=== PATIENT | male | born 1970 | race African-American/Black ===

== ENCOUNTER 2016-12-22 06:51 | Emergency (ER) | payer MEDICAID ==
--- NOTE | 2016-12-22 07:05 | ER Document Report ---
ED General - General Stated Complaint: POSSIBLE OVERDOSE Time Seen by Provider: 12/22/16 06:57 Mode of Arrival: Medic Information source: Patient, Law Enforcement Cannot obtain history due to: Altered mental status Notes: 41-year-old male presents as a suicide attempt. Patient had initially called for difficulty breathing however he has multiple pages of a suicide note written and he states to EMS that he wanted to kill himself. On arrival patient was initially minimally responsive only to painful stimuli but has since become agitated, patient has been satting 100% throughout - HPI Onset: Just prior to arrival Onset/Duration: Sudden Quality of pain: No pain Severity: Severe Pain Level: Denies Associated symptoms: Other Exacerbated by: Denies Relieved by: Denies Similar symptoms previously: No Recently seen / treated by doctor: No - Related Data Allergies/Adverse Reactions: MARIA R Inhibitors Allergy (Verified 12/22/16 08:26) Penicillins Allergy (Verified 12/22/16 08:26) shellfish derived Allergy (Verified 12/22/16 08:26) Home Medications: Current Home Medications Unobtainable [Unobtainable] 12/22/16 [History] Past Medical History - Social History Smoking Status: Never Smoker Cigarette use (# per day): No Chew tobacco use (# tins/day): No Smoking Education Provided: No Family History: Reviewed & Not Pertinent Review of Systems - Review of Systems Notes: REVIEW OF SYSTEMS: CONSTITUTIONAL : Denies fever, chills, or sweats. Denies recent illness. EENT: admits to throat swelling CARDIOVASCULAR: Denies chest pain. Denies palpitations or racing or irregular heart beat. Denies ankle edema. RESPIRATORY: Denies cough, cold, or chest congestion. Denies shortness of breath, difficulty breathing, or wheezing. GASTROINTESTINAL: Denies abdominal pain or distention. Denies nausea, vomiting , or diarrhea. Denies blood in vomitus, stools, or per rectum. Denies black, tarry stools. Denies constipation. GENITOURINARY: Denies difficulty urinating, painful urination, burning, frequency, blood in urine, or discharge. MUSCULOSKELETAL: Denies back or neck pain or stiffness. Denies joint pain or swelling. SKIN: Denies rash, lesions or sores. HEMATOLOGIC : Denies easy bruising or bleeding. LYMPHATIC: Denies swollen, enlarged glands. NEUROLOGICAL: Denies confusion or altered mental status. Denies passing out or loss of consciousness. Denies dizziness or lightheadedness. Denies headache. Denies weakness or paralysis or loss of use of either side. Denies problems with gait or speech. Denies sensory loss, numbness, or tingling. Denies seizures. PSYCHIATRIC: Denies anxiety or stress. Denies depression, suicidal ideation, or homicidal ideation. ALL OTHER SYSTEMS REVIEWED AND NEGATIVE. Dictation was performed using [employer] voice recognition software PHYSICAL EXAMINATION: GENERAL: Well-appearing, well-nourished and in no acute distress. HEAD: Atraumatic, normocephalic. EYES: Pupils equal round and reactive to light, extraocular movements intact, sclera anicteric, conjunctiva are normal. ENT: Nares patent, oropharynx clear without exudates. Moist mucous membranes. NECK: Normal range of motion, supple without lymphadenopathy LUNGS: Breath sounds clear to auscultation bilaterally and equal. No wheezes rales or rhonchi. No stridor is noted patient is breathing 100% HEART: Regular rate and rhythm without murmurs ABDOMEN: Soft, nontender, nondistended abdomen. No guarding, no rebound. No masses appreciated. Musculoskeletal: Normal range of motion, no pitting or edema. No cyanosis. NEUROLOGICAL: Initial GCS was 9, patient did quickly awaken and was very agitated PSYCH: Agitated SKIN: Warm, Dry, normal turgor, no rashes or lesions noted. Physical Exam - Vital signs Vitals: Resp Pulse Ox 20 100 12/22/16 06:52 12/22/16 06:52 Course - Re-evaluation Re-evalutation: 12/22/16 07:03 I evaluated the patient's airway I do not find any difficulty breathing there is no stridor he does not appear to be in any distress, patient does have a 7 page suicide note with multiple pill bottles but unfortunately they were all prescribed many years ago and unknown if he took any. Labwork is pending, Patient was placed in restraints due to his agitation initial concern was to intubate patient for airway protection at this time he is stable 12/22/16 07:42 pt just vomited 6 pills 12/22/16 07:48 Spoke with vignesh bland, they have little concern for the niacin and dicyclamine concern for reglan overdose noted, supportive care at this time, benzo for seizure activity 12/22/16 11:44 Medically patient is stable at this time he will be kept involuntarily for suicide attempt - Vital Signs Vital signs: Temp Pulse Resp BP Pulse Ox 97.7 F 20 153/100 H 99 12/22/16 10:59 12/22/16 07:46 12/22/16 07:46 12/22/16 07:46 - Laboratory Result Diagrams: 12/22/16 07:57 12/22/16 07:57 Laboratory results interpreted by me: 12/22/16 12/22/16 07:57 07:57 WBC 12.8 H RBC 5.83 H Hgb 18.4 H Hct 53.8 H Potassium 3.3 L Carbon Dioxide 20 L Creatinine 1.32 H Est GFR (Non-Af Amer) 59 L Glucose 124 H Total Protein 8.3 H Salicylates < 1.0 L Acetaminophen < 10 L - EKG Interpretation by Me EKG shows normal: Sinus rhythm, [place], Intervals, QRS Complexes Discharge - Discharge Clinical Impression: Suicide attempt Altered mental status Qualifiers: Altered mental status type: stupor Qualified Code(s): R40.1 - Stupor Condition: Stable Disposition: PSYCH HOSP/UNIT Referrals: LOCALMD,NO [Primary Care Provider] - Follow up as needed
[2016-12-22] MEDS ORDERED: ONDANSETRON HCL INJ/PF 4 MG/2 ML SDV IV ONE (07:38)
[2016-12-22] MEDS ORDERED: NORMAL SALINE 1000 ML 1,000 ML IV ONE (07:48)
[2016-12-22 08:06] LABS: ABSOLUTE BASOPHILS # (AUTO) 0.1 10^3/uL (0.0-0.2); ABSOLUTE EOSINOPHILS # (AUTO) 0.1 10^3/uL (0.0-0.6); ABSOLUTE LYMPHOCYTES (AUTO) 4.6 10^3/uL (0.5-4.7); ABSOLUTE MONOCYTES (AUTO) 0.7 10^3/uL (0.1-1.4); ABSOLUTE NEUT (AUTO) 7.3 10^3/uL (1.7-8.2); BASOPHILS % (AUTO) 0.5 % (0-2); EOSINOPHILS % (AUTO) 1.1 % (0-6); HEMATOCRIT 53.8 % (37.9-51.0); HEMOGLOBIN 18.4 g/dL (13.5-17.0); HGB HCT DIFFERENCE 1.4; LYMPHOCYTES % (AUTO) 35.9 % (13-45); MEAN CORPUSCULAR HEMOGLOBIN 31.5 pg (27.0-33.4); MEAN CORPUSCULAR HGB CONC 34.2 g/dL (32.0-36.0); MEAN CORPUSCULAR VOLUME 92 fl (80-97); MONOCYTES % (AUTO) 5.7 % (3-13); RED BLOOD COUNT 5.83 10^6/uL (4.35-5.55); RED CELL DISTRIBUTION WIDTH 13.6 % (11.5-14.0); SEGMENTED NEUTROPHILS % (AUTO) 56.8 % (42-78); WHITE BLOOD COUNT 12.8 10^3/uL (4.0-10.5)
[2016-12-22 08:21] LABS: ALANINE AMINOTRANSFERASE 31 U/L (21-72); ALBUMIN 4.9 g/dL (3.5-5.0); ALCOHOL 24 mg/dL (NONE DETECTED); ALKALINE PHOSPHATASE 68 U/L (38-126); ANION GAP 18 (5-19); ASPARTATE AMINO TRANSFERASE 30 U/L (17-59); BILIRUBIN,DIRECT 0.3 mg/dL (0.0-0.4); BLOOD UREA NITROGEN 10 mg/dL (7-20); CARBON DIOXIDE 20 mmol/L (22-30); CHLORIDE 107 mmol/L (98-107); CREATININE RESULT 1.32 mg/dL (0.52-1.25); GLUCOSE 124 mg/dL (75-110); POTASSIUM 3.3 mmol/L (3.6-5.0); SODIUM 144.6 mmol/L (137-145); TOTAL PROTEIN 8.3 g/dL (6.3-8.2)
[2016-12-22] MEDS: LEVETIRACETAM 500 MG TABLET PO SCH (17:51)
[2016-12-22] MEDS: BUSPIRONE HCL 10 MG TABLET PO SCH (17:51)
[2016-12-22] MEDS ORDERED: CHLORPROMAZINE HCL INJ 25 MG/1 ML AMPULE IV SCH (18:00)
[2016-12-23 01:19] LABS: APPEARANCE,URINE CLEAR; BILIRUBIN,URINE NEGATIVE (NEGATIVE); GLUCOSE, URINE NEGATIVE (NEGATIVE); KETONES,URINE NEGATIVE (NEGATIVE); LEUKOCYTE ESTERASE,URINE NEGATIVE (NEGATIVE); NITRITE,URINE NEGATIVE (NEGATIVE); PROTEIN,URINE NEGATIVE (NEGATIVE); URINE SPECIFIC GRAVITY 1.018
[2016-12-23 01:53] LABS: URINE BARBITURATES SCREEN NEGATIVE; URINE METHADONE SCREEN NEGATIVE; URINE OPIATES LOW NEGATIVE; URINE PHENCYCLIDINE SCREEN NEGATIVE
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
--- NOTE | 2016-12-23 07:31 | EKG REPORT ---
SEVERITY:- ABNORMAL ECG - SINUS RHYTHM LEFT ANTERIOR FASCICULAR BLOCK BORDERLINE R WAVE PROGRESSION, ANTERIOR LEADS : Confirmed by: Brijesh Blanco MD 23-Dec-2016 07:30:10
--- NOTE | 2016-12-23 09:34 | ER Document Report ---
Doctor's Note Notes: 12/23/16 09:33 As the rounding physician for our psychiatric patients, I have reviewed the chart, vitals, lab work. Patient has been examined and noted to be intermittently agitated stating he wants to go home. I am awaiting mental health in [place], however I believe he definitely needs placement but patient states he will become violent.
[2016-12-23] MEDS: BUSPIRONE HCL 10 MG TABLET PO SCH (09:55)
[2016-12-23] MEDS: LEVETIRACETAM 500 MG TABLET PO SCH (09:55)
[2016-12-23] MEDS: CHLORPROMAZINE HCL INJ 25 MG/1 ML AMPULE IM SCH ×2 (12:00→17:57)
[2016-12-24] MEDS: CHLORPROMAZINE HCL INJ 25 MG/1 ML AMPULE IM SCH ×2 (06:00)
[2016-12-24] MEDS ORDERED: CHLORPROMAZINE HCL 10 MG TABLET PO PRN (09:55)
--- NOTE | 2016-12-24 09:56 | ER Document Report ---
Doctor's Note Notes: 12/24/16 09:56 Patient seen and evaluated and assessed this a.m. Asked to change Thorazine to as needed which I have done. Pending arrangement disposition per psychiatric team.
[2016-12-24] MEDS: LEVETIRACETAM 500 MG TABLET PO SCH (10:52)
[2016-12-24] MEDS: BUSPIRONE HCL 10 MG TABLET PO SCH (10:53)
[2016-12-24 12:13] VITALS: BP 126/60
[2016-12-24] MEDS ORDERED: ATORVASTATIN CALCIUM 20 MG TABLET PO SCH ×2 (12:30→22:00)
[2016-12-25] MEDS ORDERED: METOPROLOL TARTRATE 50 MG TABLET PO SCH (10:00)
[2016-12-25] MEDS ORDERED: METFORMIN HCL 500 MG TABLET PO SCH (10:00)
[2016-12-25] MEDS ORDERED: AMLODIPINE BESYLATE 10 MG TABLET PO SCH (10:00)
[2016-12-25] MEDS ORDERED: ASPIRIN 81 MG TABLET, CHEWABLE PO SCH (10:00)
== END 2016-12-24 13:35 ==
LOC: ER 06:51 → EDBD 06:51 → ER 12-24 13:35
DX: T45.0X2A Poisoning by antiallergic and antiemetic drugs, intentional self-harm, initial encounter (principal); R40.1 Stupor; F31.9 Bipolar disorder, unspecified
CPT/HCPCS: 93005; 99285; 96372; 96374; 36415; 82962; 80307 ×4; 85025; 80053; 81001; 93010; J3230; J3490 ×6; J2405; J7030

== ENCOUNTER 2017-09-19 09:15 | Inpatient (IN) | payer SELFPAY ==
--- NOTE | 2017-09-19 09:49 | ER Document Report ---
ED General - General Stated Complaint: SUICIDAL IDEATION Time Seen by Provider: 09/19/17 09:37 Mode of Arrival: Medic Information source: Patient, Emergency Med Personnel, [facility] Records Notes: 47-year-old male history of bipolar disorder with previous suicide attempts presents after a suicide attempt. Patient notes he took on known amount of medications. Patient states he took possibly 3300 mg gabapentin, unknown amount of Depakote 500 mg, and another pill that was given to him by a friend. EMS arrived noted the patient had pinpoint pupils and gave him 2 mg Narcan and patient became more alert. A suicide note was noted Patient admits that he no longer wants to live TRAVEL OUTSIDE OF THE [place] IN LAST 30 DAYS: No - HPI Onset: Other - Unclear if he took medications last night or this morning Onset/Duration: Sudden Quality of pain: No pain Severity: Severe Pain Level: Denies Associated symptoms: Other Exacerbated by: Denies Relieved by: Denies Similar symptoms previously: Yes Recently seen / treated by doctor: Yes - Related Data Allergies/Adverse Reactions: MARIA R Inhibitors Allergy (Verified 12/22/16 08:26) Penicillins Allergy (Verified 12/22/16 08:26) shellfish derived Allergy (Verified 12/22/16 08:26) Past Medical History - Social History Smoking Status: Never Smoker Cigarette use (# per day): No Chew tobacco use (# tins/day): No Smoking Education Provided: No Family History: Reviewed & Not Pertinent Review of Systems - Review of Systems Notes: REVIEW OF SYSTEMS: CONSTITUTIONAL : Denies fever, chills, or sweats. Denies recent illness. EENT: Admits to blurry vision CARDIOVASCULAR: Denies chest pain. Denies palpitations or racing or irregular heart beat. Denies ankle edema. RESPIRATORY: Denies cough, cold, or chest congestion. Denies shortness of breath, difficulty breathing, or wheezing. GASTROINTESTINAL: Denies abdominal pain or distention. Denies nausea, vomiting , or diarrhea. Denies blood in vomitus, stools, or per rectum. Denies black, tarry stools. Denies constipation. GENITOURINARY: Denies difficulty urinating, painful urination, burning, frequency, blood in urine, or discharge. FEMALE GENITOURINARY: Denies vaginal bleeding, heavy or abnormal periods, irregular periods. Denies vaginal discharge or odor. MUSCULOSKELETAL: Denies back or neck pain or stiffness. Denies joint pain or swelling. SKIN: Denies rash, lesions or sores. HEMATOLOGIC : Denies easy bruising or bleeding. LYMPHATIC: Denies swollen, enlarged glands. NEUROLOGICAL: Denies confusion or altered mental status. Denies passing out or loss of consciousness. Denies dizziness or lightheadedness. Denies headache. Denies weakness or paralysis or loss of use of either side. Denies problems with gait or speech. Denies sensory loss, numbness, or tingling. Denies seizures. PSYCHIATRIC: Admits to suicidal ideation ALL OTHER SYSTEMS REVIEWED AND NEGATIVE. PHYSICAL EXAMINATION: GENERAL: Well-appearing, well-nourished and in no acute distress. HEAD: Atraumatic, normocephalic. EYES: Pupils equal round and reactive to light, extraocular movements intact, conjunctiva are normal. ENT: Nares patent, oropharynx clear without exudates. Moist mucous membranes. NECK: Normal range of motion, supple without lymphadenopathy LUNGS: Breath sounds clear to auscultation bilaterally and equal. No wheezes rales or rhonchi. HEART: Regular rate and rhythm without murmurs ABDOMEN: Soft, nontender, nondistended abdomen. No guarding, no rebound. No masses appreciated. Female : deferred Musculoskeletal: Normal range of motion, no pitting or edema. No cyanosis. NEUROLOGICAL: Cranial nerves grossly intact. Normal speech, normal gait. Normal sensory, motor exams PSYCH: Tearful depressed SKIN: Warm, Dry, normal turgor, no rashes or lesions noted. Dictation was performed using [employer] voice recognition software Physical Exam - Vital signs Vitals: Resp BP Pulse Ox 19 125/82 92 09/19/17 09:28 09/19/17 09:28 09/19/17 09:28 Course - Re-evaluation Re-evalutation: 09/19/17 09:47 Poison control called , notified of overdose of gabapentin and depakote 09/19/17 09:52 They suggest continous cardiac monitoring, serial ekg and depakote levels q3 hours if pateint becomes altered to get ammonia levels. treat seizures with benzos 09/19/17 09:54 - Vital Signs Vital signs: Temp Pulse Resp BP Pulse Ox 21 H 125/82 95 09/19/17 09:29 09/19/17 09:28 09/19/17 10:00 - Laboratory Result Diagrams: 09/19/17 09:50 09/19/17 09:50 Laboratory results interpreted by me: 09/19/17 09/19/17 09:50 09:50 WBC 13.3 H RDW 14.3 H Absolute Lymphocytes 5.9 H Sodium 145.2 H Salicylates < 1.0 L Acetaminophen < 10 L Discharge - Discharge Clinical Impression: Suicide attempt Condition: Fair Disposition: ADMITTED INPATIENT Admitting Provider: Hospitalist Unit Admitted: IMCU
--- NOTE | 2017-09-19 09:57 | EKG REPORT ---
SEVERITY:- OTHERWISE NORMAL ECG - SINUS RHYTHM S1,S2,S3 PATTERN : Confirmed by: Merritt Tsai 19-Sep-2017 09:57:09
[2017-09-19 10:09] LABS: ABSOLUTE BASOPHILS # (AUTO) 0.1 10^3/uL (0.0-0.2); ABSOLUTE EOSINOPHILS # (AUTO) 0.4 10^3/uL (0.0-0.6); ABSOLUTE LYMPHOCYTES (AUTO) 5.9 10^3/uL (0.5-4.7); ABSOLUTE MONOCYTES (AUTO) 0.8 10^3/uL (0.1-1.4); BASOPHILS % (AUTO) 1.1 % (0-2); EOSINOPHILS % (AUTO) 2.8 % (0-6); HEMATOCRIT 44.6 % (37.9-51.0); LYMPHOCYTES % (AUTO) 44.3 % (13-45); MEAN CORPUSCULAR HEMOGLOBIN 30.1 pg (27.0-33.4); MEAN CORPUSCULAR HGB CONC 33.6 g/dL (32.0-36.0); MEAN CORPUSCULAR VOLUME 90 fl (80-97); MONOCYTES % (AUTO) 6.3 % (3-13); PLATELET COUNT 379 10^3/uL (150-450); RED BLOOD COUNT 4.98 10^6/uL (4.35-5.55); RED CELL DISTRIBUTION WIDTH 14.3 % (11.5-14.0); SEGMENTED NEUTROPHILS % (AUTO) 45.5 % (42-78); TOTAL CELLS COUNTED % (AUTO) 100 %; WHITE BLOOD COUNT 13.3 10^3/uL (4.0-10.5)
[2017-09-19 10:33] LABS: ALANINE AMINOTRANSFERASE 27 U/L (21-72); ALBUMIN 4.6 g/dL (3.5-5.0); ALKALINE PHOSPHATASE 59 U/L (38-126); ANION GAP 11 (5-19); ASPARTATE AMINO TRANSFERASE 29 U/L (17-59); BILIRUBIN,DIRECT 0.3 mg/dL (0.0-0.4); BILIRUBIN,TOTAL 0.7 mg/dL (0.2-1.3); BLOOD UREA NITROGEN 9 mg/dL (7-20); CALCIUM 10.1 mg/dL (8.4-10.2); CARBON DIOXIDE 27 mmol/L (22-30); CHLORIDE 107 mmol/L (98-107); GLUCOSE 105 mg/dL (75-110); POTASSIUM 4.5 mmol/L (3.6-5.0); SODIUM 145.2 mmol/L (137-145); TOTAL PROTEIN 7.5 g/dL (6.3-8.2)
[2017-09-19 10:39] LABS: ACETAMINOPHEN < 10 ug/mL (10-30); ALCOHOL < 10 mg/dL (NONE DETECTED); SALICYLATE < 1.0 mg/dL (2.0-20.0)
[2017-09-19] MEDS ORDERED: NORMAL SALINE 1000 ML 1,000 ML IV ONE (11:12)
[2017-09-19] MEDS ORDERED: INSULIN LISPRO 100 UNIT/ML 3 ML VIAL SUBCUT PRN (12:04)
[2017-09-19] MEDS ORDERED: GLUCAGON,HUMAN RECOMB 1 MG INJ IM PRN (12:04)
[2017-09-19] MEDS ORDERED: DEXTROSE 40% GEL 15 GM TUBE PO PRN ×2 (12:04)
[2017-09-19] MEDS ORDERED: DEXTROSE 50%-WATER 25 GM/50 ML DISP.SYRIN IV PRN ×2 (12:04)
[2017-09-19 12:28] LABS: APPEARANCE,URINE CLEAR; BILIRUBIN,URINE NEGATIVE (NEGATIVE); COLOR,URINE YELLOW; GLUCOSE, URINE NEGATIVE (NEGATIVE); KETONES,URINE TRACE mg/dL (NEGATIVE); LEUKOCYTE ESTERASE,URINE NEGATIVE (NEGATIVE); NITRITE,URINE NEGATIVE (NEGATIVE); PROTEIN,URINE NEGATIVE (NEGATIVE); URINE SPECIFIC GRAVITY 1.013; UROBILINOGEN,URINE NEGATIVE mg/dL (<2.0)
--- NOTE | 2017-09-19 12:59 | PSYCHOLOGICAL NOTE ---
Psych Note - Psych Note Psych Note: Reason for consult: intentional overdose Clinician notes patient has additional chart [id number] 47-year-old male history of bipolar disorder with previous suicide attempts presents after a suicide attempt. Patient notes he took an unknown amount of medications. EMS arrived noted the patient had pinpoint pupils and gave him 2 mg Narcan and patient became more alert. A suicide note was noted Patient disclosed that he "took a lot of pills." He is unable to disclose how many or what he took stating that they were his "cold pills." He reports that he is tired of "this shit... I am miserable... I love my mom that I am miserable... I do not want to live like this." Patient reports that he was taking some medication however his insurance lapsed and was unable to continue taking that medication. He is unable to identify what his new medications are. Patient is semi-alert and orientated to person, place, time and circumstance. Mood is dysphoric with flat affect. Patient presents after intentional overdose of multiple medications. Patient discloses he does not want to continue living that he is "miserable." Delusions are absent and behaviors congruent with intact reality based presentation i.e. organized and linear thought processes. Cognitive functioning is currently impaired due to his intentional overdose. 296.80 (F31.9) Unspecified Bipolar and Related Disorder per history provided by patient Impression\\plan: Patient is recommended for IVC. Patient demonstrated plan and means and intent that resulted his intentional overdose. Patient's insight and judgment impulse control are poor and he is considered a danger to himself. Dr. Mcdonough was consulted on the care and management of this patient; attending physician is in agreement with recommendations and disposition.
[2017-09-19 13:00] LABS: URINE AMPHETAMINES SCREEN NEGATIVE; URINE BARBITURATES SCREEN NEGATIVE; URINE BENZODIAZEPINES SCREEN NEGATIVE; URINE COCAINE SCREEN UNCONFIRMED POSITIVE; URINE MARIJUANA (THC) SCREEN NEGATIVE; URINE METHADONE SCREEN NEGATIVE; URINE PHENCYCLIDINE SCREEN NEGATIVE
[2017-09-19] MEDS ORDERED: ENOXAPARIN SODIUM INJ 30 MG/0.3 ML DISP.SYRIN SUBCUT ONE (13:00)
[2017-09-19] MEDS ORDERED: LORAZEPAM INJ 2 MG/1 ML VIAL IV PRN (13:03)
--- NOTE | 2017-09-19 19:25 | EKG REPORT ---
SEVERITY:- ABNORMAL ECG - SINUS RHYTHM LEFT ANTERIOR FASCICULAR BLOCK : Confirmed by: Merritt Tsai 19-Sep-2017 19:25:08
--- NOTE | 2017-09-19 21:13 | PDOC H&P ---
History of Present Illness Admission Date/PCP: 09/19/17 11:45 History of Present Illness: ALISON HESS is a 47 year old male who was brought in by EMS following an overdose. The patient ingested up to 30 tablets of 300mg Gabapentin, an unknown number of 500 mg Depakote tablets, and an "unknown tablet" given to him by a friend. The patient states he ingested the pills last night between 2200 and 0200 this morning. The patient also admits to drinking alcohol and using cocaine last night. Of note, the patient was recently hospitalized following a suicide attempt when he tried hanging himself in the back yard. The patient states that after his last suicide attempt, his left him and took their daughter with her. The patient and his have been fighting a lot recently and that is what drove him to attempt suicide. PMH includes Bipolar Disorder, depression, DM, HTN, HLD, CABG x 1, and illicit drug use (cocaine and marijuana) Poison Control was notified by the ED MD, they recommend telemetry monitoring x 24hrs and q6h EKG. The patient presented in NSR, no evidence of acute ischemia or infarction. Vital signs were relatively normal BP125/82 P85 RR20 T98.2 [id number]% on RA. His depakote level was 91, ETOH < 10, all other labs benign. Poison Control also recommends checking depakote levels q3h until the levels peak and checking ammonia level if the patient becomes confused. Upon assessment , the patient is asleep but arousable. He is oriented to self and place only. When asked if he understood his situation, he states he is in the ED for his lower back pain. The patient acknowledges his suicide attempt, but does not think that is the reason why he is in the hospital. In addition to his suicidal ideation, the patient also complains of new blurry vision in his R eye, and chronic lower back pain. IVC paperwork has been served by the [facility]'s Dept. Plan to admit to hospitalist service for medical management following drug overdose. Past Medical History Cardiac Medical History: Reports: Hypertension Endocrine Medical History: Reports: Diabetes Mellitus Type 2 Psychiatric Medical History: Reports: Bipolar Disorder Past Surgical History Past Surgical History: Reports: Coronary Artery Bypass Graft Social History Information Source: Patient Lives with: Parents Smoking Status: Current Every Day Smoker Cigarettes Packs Per Day: 0.5 Number of Years Smokin Frequency of Alcohol Use: Social Hx Recreational Drug Use: Yes Drugs: Cocaine, Marijuana Hx Prescription Drug Abuse: No - Advance Directive Resuscitation Status: Full Code Family History Family History: Reviewed & Not Pertinent Parental Family History Reviewed: Yes Children Family History Reviewed: Yes Sibling(s) Family History Reviewed.: Yes Medication/Allergy Home Medications: Aspirin [Aspirin 81 mg Chewable Tablet] 81 mg PO DAILY 12/24/16 Allergies/Adverse Reactions: MARIA R Inhibitors Allergy (Verified 12/22/16 08:26) Penicillins Allergy (Verified 12/22/16 08:26) shellfish derived Allergy (Verified 12/22/16 08:26) Review of Systems All systems: reviewed and no additional remarkable complaints except as stated Psychiatric: PRESENT: depression, hallucinations, suicidal ideation Physical Exam Vital Signs: Temp Pulse Resp BP Pulse Ox 98.1 F 62 16 146/96 H 100 09/19/17 13:46 09/19/17 14:00 09/19/17 13:46 09/19/17 13:46 09/19/17 13:46 Intake & Output 09/18/17 09/19/17 09/20/17 06:59 06:59 06:59 Intake Total 10 Balance 10 Weight 117.1 kg General appearance: PRESENT: no acute distress, well-developed, well-nourished Head exam: PRESENT: atraumatic, normocephalic Eye exam: PRESENT: conjunctiva pink, EOMI, PERRLA. ABSENT: scleral icterus Ear exam: PRESENT: normal external ear exam Mouth exam: PRESENT: moist, tongue midline Neck exam: ABSENT: carotid bruit, JVD, lymphadenopathy, thyromegaly Respiratory exam: PRESENT: clear to auscultation rimma. ABSENT: rales, rhonchi, wheezes Cardiovascular exam: PRESENT: RRR. ABSENT: diastolic murmur, rubs, systolic murmur Pulses: PRESENT: normal dorsalis pedis pul Vascular exam: PRESENT: normal capillary refill GI/Abdominal exam: PRESENT: normal bowel sounds, soft. ABSENT: distended, guarding, mass, organolmegaly, rebound, tenderness Rectal exam: PRESENT: deferred Extremities exam: PRESENT: full ROM. ABSENT: calf tenderness, clubbing, pedal edema Neurological exam: PRESENT: alert, awake, oriented to person, oriented to place , oriented to time, CN II-XII grossly intact. ABSENT: oriented to situation, motor sensory deficit Psychiatric exam: PRESENT: suicidal ideation. ABSENT: homicidal ideation Skin exam: PRESENT: dry, intact, warm. ABSENT: cyanosis, rash Results Laboratory Results: 09/19/17 12:14 Urine Color YELLOW Urine Appearance CLEAR Urine pH 6.0 Ur Specific [place] 1.013 Urine Protein NEGATIVE Urine Glucose (UA) NEGATIVE Urine Ketones TRACE H Urine Blood NEGATIVE Urine Nitrite NEGATIVE Ur Leukocyte Esterase NEGATIVE Urine WBC (Auto) 0 Urine RBC (Auto) 0 Status: Imported from PACS Assessment & Plan - Diagnosis (1) Suicide attempt Is this a current diagnosis for this admission?: Yes Plan: Patient admits to ingesting gabapentin, depakote, and an "unknown pill" in an attempt to take his life. Suicide note found at scene by EMS. Patient admits to intermittent compliance with psych medications over the last 8 months. Admits to marijuana and cocaine use, as well as infrequent ETOH use. Poison Control notified, they recommend q3hr Depakote levels monitoring for peak and q6h EKG to monitor for QT prolongation and QRS widening. Check ammonia levels if patient becomes acutely confused. Admit to IM 1:1 sitter for safety. Suicide precautions. PSYCH consulted, appreciate their recommendations All home psych medications are on hold at this time PRN IV ativan for agitation (2) HTN (hypertension) Qualifiers: Hypertension type: essential hypertension Qualified Code(s): I10 - Essential (primary) hypertension Is this a current diagnosis for this admission?: Yes Plan: The patient endorses a history of HTN, admits he is non-compliant with medications Home dose metoprolol is currently on HOLD in light of recent overdose. (3) Bipolar 1 disorder, depressed Is this a current diagnosis for this admission?: Yes Plan: Patient states he was diagnosed with Bipolar Disorder "years ago." Endorses visual hallucinations - states he "sees shadows running" Endorses auditory hallucinations - states he hears voices telling him "bad things about himself, and they tell" him to harm himself Patient admits that he has not been compliant with his psych medications for approximately 8 months PSYCH consulted, appreciate their recommendations (4) Diabetes Qualifiers: Diabetes mellitus type: type 2 Diabetes mellitus [employer] insulin use: unspecified [employer] insulin use status Diabetes mellitus complication status : without complication Qualified Code(s): E11.9 - Type 2 diabetes mellitus without complications Is this a current diagnosis for this admission?: Yes Plan: Patient endorses history of DM but states he is non-compliant with treatment Check HgbA1c in AM ACHS accu-cheks with humalog sliding scale insulin - Time Time Spent: 30 to 50 Minutes Critical Time spent with patient: 15-24 minutes Medications reviewed and adjusted accordingly: Yes - Inpatient Certification Based on my medical assessment, after consideration of the patient's comorbidities, presenting symptoms, or acuity I expect that the services needed warrant INPATIENT care.: Yes I certify that my determination is in accordance with my understanding of Medicare's requirements for reasonable and necessary INPATIENT services [42 CFR 412.3e].: Yes Medical Necessity: Other - Involuntarily Committed for suicide attempt - Plan Summary Plan Summary: IVC admission. Monitor for 24hrs - serial EKGs and Depakote levels
[2017-09-20 05:25] LABS: HEMATOCRIT 45.4 % (37.9-51.0); HEMOGLOBIN 15.2 g/dL (13.5-17.0); MEAN CORPUSCULAR HEMOGLOBIN 30.2 pg (27.0-33.4); MEAN CORPUSCULAR HGB CONC 33.6 g/dL (32.0-36.0); MEAN CORPUSCULAR VOLUME 90 fl (80-97); PLATELET COUNT 361 10^3/uL (150-450); RED BLOOD COUNT 5.05 10^6/uL (4.35-5.55); WHITE BLOOD COUNT 10.3 10^3/uL (4.0-10.5)
[2017-09-20 05:43] LABS: ABSOLUTE LYMPHOCYTES# (MANUAL) 5.9 10^3/uL (0.5-4.7); ABSOLUTE MONOCYTES # (MANUAL) 0.2 10^3/uL (0.1-1.4); ABSOLUTE NEUTROPHILS# (MANUAL) 3.7 10^3/uL (1.7-8.2); BASOPHILS % (MANUAL) 1 % (0-2); EOSINOPHILS % (MANUAL) 4 % (0-6); LYMPHOCYTES % (MANUAL) 56 % (13-45); MONOCYTES % (MANUAL) 2 % (3-13); SEGMENTED NEUTROPHILS % (MAN) 36 % (42-78); TOTAL CELLS COUNTED 100
[2017-09-20 05:44] LABS: ANISOCYTOSIS SLIGHT; OVALOCYTES SLIGHT; PLATELET COMMENT ADEQUATE; POIKILOCYTOSIS SLIGHT; TARGET CELLS SLIGHT
[2017-09-20 05:52] LABS: ANION GAP 15 (5-19); BLOOD UREA NITROGEN 13 mg/dL (7-20); CALCIUM 9.5 mg/dL (8.4-10.2); CARBON DIOXIDE 25 mmol/L (22-30); CHLORIDE 105 mmol/L (98-107); GLUCOSE 102 mg/dL (75-110); POTASSIUM 4.3 mmol/L (3.6-5.0); SODIUM 144.5 mmol/L (137-145)
[2017-09-20] MEDS ORDERED: HALOPERIDOL LACTATE INJ 5 MG/1 ML VIAL ONE (07:40)
[2017-09-20] MEDS ORDERED: LORAZEPAM INJ 2 MG/1 ML VIAL ONE (07:41)
[2017-09-20] MEDS ORDERED: LORAZEPAM INJ 2 MG/1 ML VIAL IM ONE (08:00)
[2017-09-20] MEDS ORDERED: HALOPERIDOL LACTATE INJ 5 MG/1 ML VIAL IM ONE (08:00)
[2017-09-20 09:35] VITALS: BP 146/96
[2017-09-20] MEDS ORDERED: ENOXAPARIN SODIUM INJ 30 MG/0.3 ML DISP.SYRIN SUBCUT SCH (10:00)
[2017-09-20] MEDS ORDERED: OLANZAPINE 5 MG TABLET PO SCH (10:00)
[2017-09-20] MEDS ORDERED: METOPROLOL TARTRATE 50 MG TABLET PO SCH (10:00)
[2017-09-20] MEDS ORDERED: ASPIRIN 81 MG TABLET, ENT COATED PO SCH (10:00)
[2017-09-20] MEDS ORDERED: AMLODIPINE BESYLATE 10 MG TABLET PO SCH (10:00)
[2017-09-20] MEDS ORDERED: BENZTROPINE MESYLATE 1 MG TABLET PO SCH (22:00)
[2017-09-21] MEDS ORDERED: DIVALPROEX SODIUM 500 MG TAB.SR.24H PO SCH (11:00)
--- NOTE | 2017-09-24 14:18 | PDOC DISCHARGE SUMMARY ---
General - Admit/Disc Date/PCP Admission Date/Primary Care Provider: 09/19/17 11:45 Discharge Date: 09/20/17 - Discharge Diagnosis (1) Suicide attempt Is this a current diagnosis for this admission?: Yes (2) HTN (hypertension) Is this a current diagnosis for this admission?: Yes (3) Bipolar 1 disorder, depressed Is this a current diagnosis for this admission?: Yes (4) Diabetes Is this a current diagnosis for this admission?: Yes - Additional Information Resuscitation Status: Full Code Discharge Diet: As Tolerated Discharge Activity: Activity As Tolerated Prescriptions: Amlodipine Besylate [Norvasc 10 mg Tablet] 10 mg PO DAILY #7 tablet Benztropine Mesylate [Cogentin 1 mg Tablet] 1 mg PO QHS #7 tablet Divalproex Sodium [Depakote ER 500 mg Tab.sr] 500 mg PO BID #14 tab.sr.24h Metoprolol Tartrate [Lopressor 50 mg Tablet] 50 mg PO DAILY #7 tablet Olanzapine [Zyprexa 5 mg Tablet] 5 mg PO Q12 #14 tablet Home Medications: Aspirin [Aspirin 81 mg Chewable Tablet] 81 mg PO DAILY 12/24/16 Amlodipine Besylate [Norvasc 10 mg Tablet] 10 mg PO DAILY #7 tablet 09/20/17 Benztropine Mesylate [Cogentin 1 mg Tablet] 1 mg PO QHS #7 tablet 09/20/17 Divalproex Sodium [Depakote ER 500 mg Tab.sr] 500 mg PO BID #14 tab.sr.24h 09/20 Metoprolol Tartrate [Lopressor 50 mg Tablet] 50 mg PO DAILY #7 tablet 09/20/17 Olanzapine [Zyprexa 5 mg Tablet] 5 mg PO Q12 #14 tablet 09/20/17 History of Present Illness History of Present Illness: ALISON HESS is a 47 year old male who was brought in by EMS following an overdose. The patient ingested up to 30 tablets of 300mg Gabapentin, an unknown number of 500 mg Depakote tablets, and an "unknown tablet" given to him by a friend. The patient states he ingested the pills last night between 2200 and 0200 this morning. The patient also admits to drinking alcohol and using cocaine last night. Of note, the patient was recently hospitalized following a suicide attempt when he tried hanging himself in the back yard. The patient states that after his last suicide attempt, his left him and took their daughter with her. The patient and his have been fighting a lot recently and that is what drove him to attempt suicide. PMH includes Bipolar Disorder, depression, DM, HTN, HLD, CABG x 1, and illicit drug use (cocaine and marijuana) Poison Control was notified by the ED MD, they recommend telemetry monitoring x 24hrs and q6h EKG. The patient presented in NSR, no evidence of acute ischemia or infarction. Vital signs were relatively normal BP125/82 P85 RR20 T98.2 [id number]% on RA. His depakote level was 91, ETOH < 10, all other labs benign. Poison Control also recommends checking depakote levels q3h until the levels peak and checking ammonia level if the patient becomes confused. Upon assessment , the patient is asleep but arousable. He is oriented to self and place only. When asked if he understood his situation, he states he is in the ED for his lower back pain. The patient acknowledges his suicide attempt, but does not think that is the reason why he is in the hospital. In addition to his suicidal ideation, the patient also complains of new blurry vision in his R eye, and chronic lower back pain. IVC paperwork has been served by the [facility]'s Dept. Plan to admit to hospitalist service for medical management following drug overdose. Hospital Course Hospital Course: ALISON HESS is a 47 year old male who presented to the Emergency Department for a depakote and gabapentin overdose. Valproic Acid levels peaked at 1900 the night of his admission, his level was 101, overnight it decreased to 59.9. Telemetry strip reading shows NSR, no widening of the QRS or prolongation of the QT interval. Nursing staff called the author 0730 the next morning because he was threatening physical violence to staff members. [place] [employer] was called and able to negotiate with the patient. The patient was awake, alert and oriented, able to stand up OOB without difficulty. Joan from poison control was called, she stated that the patient was considered medically cleared from their perspective, the author agrees. PSYCH was notified that the patient is medically cleared, while waiting to hear back about the the plan, the patient was transferred to the ICU. While in ICU the patient met with a PSYCH water team leader. Following their meeting, the PSYCH water team leader stated that she did not believe that the patient had the ability to carry out a lethal suicide. All of his previous attempts were done in a way where he knew someone would find him. While in the ICU, patient repeatedly stated that he did not and that he was only frustrated with the arguments he continued to have with his ex- regarding their daughter. The PSYCH water team leader stated that she felt the patient was safe to go home with instructions to call the mobile crisis unit as soon as he gets to his house. Psych believes that what this patient needs is therapy, and adding medications to his regimen would not benefit him. In addition to the mobile crisis team, the patient was given instructions on following up with the integrated family services team, this being a group of therapists and medical personnel who can coordinate mental health care and help to manage his medications. Prior to discharge from the hospital, the patient denied suicidal and homicidal ideation. He was given prescriptions for his home medications (only 1 one weeks worth) and discharged home in the care of his family friend and accompanied by his elderly mother. On the day of discharge, he was 36hrs+ post ingestion. Physical Exam Vital Signs: Temp Pulse Resp BP Pulse Ox 98.7 F 87 16 146/96 H 98 09/20/17 09:32 09/20/17 09:32 09/20/17 09:32 09/20/17 09:32 09/20/17 09:32 Results Laboratory Results: 09/20/17 04:23 09/20/17 04:23 Status: Imported from [facility] Qualifiers - * PATIENT BEING DISCHARGED WITH ANY OF THE FOLLOWING DIAGNOSIS: No Plan Discharge Plan: discharge home in the care of his neighbor. Patient was given specific instructions to call the crisis mobile hotline when he gets home Time Spent: Less than 30 Minutes
== END 2017-09-20 11:05 | disposition home or self-care (01) | DRG 918 ==
LOC: ER 09:15 → EH 11:45 → 3W 13:38 → ICU 09-20 08:08
PROVIDERS: ADMIT Internal Medicine; ATTEND Internal Medicine
DX: T42.6X2A Poisoning by other antiepileptic and sedative-hypnotic drugs, intentional self-harm, initial encounter (principal); Y92.009 Unspecified place in unspecified non-institutional (private) residence as the place of occurrence of the external cause; T50.902A Poisoning by unspecified drugs, medicaments and biological substances, intentional self-harm, initial encounter; G89.29 Other chronic pain; E11.9 Type 2 diabetes mellitus without complications; I10 Essential (primary) hypertension; F31.9 Bipolar disorder, unspecified; F14.90 Cocaine use, unspecified, uncomplicated; F12.90 Cannabis use, unspecified, uncomplicated; Z63.0 Problems in relationship with spouse or partner; Z91.5 Personal history of self-harm; M54.5 Low back pain; F17.210 Nicotine dependence, cigarettes, uncomplicated; Z88.0 Allergy status to penicillin; Z88.2 Allergy status to sulfonamides; Z88.8 Allergy status to other drugs, medicaments and biological substances; Z79.82 Long term (current) use of aspirin; Z91.19 Patient's noncompliance with other medical treatment and regimen; Z95.1 Presence of aortocoronary bypass graft
CPT/HCPCS: 36415; 80048; 80053; 80164; 80307; 81001; 82140; 82962; 83036; 83735; 84100; 84443; 85025; 93005; 93010; 99285; J1650; J7030

== ENCOUNTER 2018-10-14 07:10 | Emergency (ER) | payer SELFPAY ==
--- NOTE | 2018-10-14 07:32 | ER Document Report ---
ED Psych Disorder / Suicide <SHANAE MALHOTRA - Last Filed: 10/14/18 10:27> - General TRAVEL OUTSIDE OF THE [place] IN LAST 30 DAYS: No - HPI Patient complains to provider of: Overdose, Suicidal ideation, Suicidal plan, Suicidal attempt, Self injury Onset was: Gradual Severity: Moderate Pain Level: 1 - Out headache Suicide Risk Factors: Chronic illness, Depressed, Substance abuse <ALISON LUGO - Last Filed: 10/14/18 10:40> - General Chief Complaint: Suicidal Ideation Stated Complaint: PSYCH EVAL Time Seen by Provider: 10/14/18 07:32 Primary Care Provider: [facility] [Outside] - Follow up as needed [facility] [Outside] - Follow up as needed Notes: 48-year-old -[place] male to the emergency department chief complaint is bipolar, depression, suicidal ideation, substance abuse. Patient states that he has been on medications in the past but cannot remember which ones. Has not been taking any medications for 2 years. States that he is currently on parole. Apparently lost his ankle bracelet last night and did a lot of drugs in an attempt to "kill himself". States that he cannot deal with all of the stress and is requesting help at this time. He has had thoughts of wanting to hang himself. Patient states that he is hearing voices telling him to kill himself. (ALISON LUGO) - Related Data Allergies/Adverse Reactions: Shellfish * [Shellfish] Allergy (Severe, Verified 02/24/18 13:10) MARIA R Inhibitors Allergy (Verified 12/22/16 08:26) iodine [Iodine] Allergy (Verified 02/24/18 13:10) Penicillins Allergy (Verified 12/22/16 08:26) shellfish derived Allergy (Verified 12/22/16 08:26) Past Medical History - General Information source: Patient - Social History Smoking Status: Smoker,Current Status Unk Frequency of alcohol use: None Drug Abuse: Other - Admits to illegal substances Lives with: Spouse/Significant other Family History: CAD, Hypertension, Reviewed & Not Pertinent - Past Medical History Cardiac Medical History: Reports: Hx Coronary Artery Disease, Hx Hypercholesterolemia, Hx Hypertension Denies: Hx Atrial Fibrillation, Hx Congestive Heart Failure, Hx Heart Attack, Hx Peripheral Vascular Disease, Hx Pulmonary Embolism, Hx Heart Murmur Pulmonary Medical History: Reports: Hx Asthma, Hx Pneumonia - 2008 after CABG Denies: Hx Bronchitis, Hx COPD, Hx Respiratory Failure, Hx Sleep Apnea - snores, Hx Tuberculosis Endocrine Medical History: Reports: Hx Diabetes Mellitus Type 2 Renal/ Medical History: Denies: Hx Peritoneal Dialysis Malignancy Medical History: Denies Hx Lung Cancer Musculoskeletal Medical History: Denies Hx Muscular Dystrophy Psychiatric Medical History: Reports: Hx Bipolar Disorder, Hx Depression Traumatic Medical History: Reports: Hx Fractures - fingers and ankles from football injuries Past Surgical History: Reports: Hx Cardiac Catheterization - 1X stent, Hx Cardiac Surgery - CABH 1 vessel, Hx Coronary Artery Bypass Graft - LAD was bypassed on 03/08/2008 following occlusion of an LAD stent, Hx Coronary Stent, Hx Open Heart Surgery. Denies: Hx Pacemaker - Immunizations Hx Diphtheria, Pertussis, Tetanus Vaccination: Yes <ALISON LUGO - Last Filed: 10/14/18 10:40> Review of Systems <ALISON LUGO - Last Filed: 10/14/18 10:40> - Review of Systems Notes: Constitutional: denies: Chills, Diaphoresis, Fever, Malaise, Weakness EENT: denies: Eye discharge, Blurred vision, Tearing, Double vision, Nose congestion, Nose discharge, Throat swelling, Mouth pain Cardiovascular: denies: Palpitations, Heart racing, Orthopnea, Dyspnea, Chest pain Respiratory: denies: Cough, Hurts to breathe, Wheezing, Shortness of breath Gastrointestinal: denies: Abdominal pain, Diarrhea, Nausea, Vomiting, Black stools, bright red blood in stool Genitourinary: denies: Burning, Dysuria, Discharge, Frequency, Flank pain, Hematuria Musculoskeletal: denies: Joint pain, Joint swelling, Muscle pain, Muscle stiffness, back pain Hematologic/Lymphatic: denies: Anemia, Easy bleeding, Easy bruising, Blood clots Neurological/Psychological: denies: Confusion, Dementia,. Does complain of depression, bipolar, voices telling him to kill himself. Skin: No lesions, no masses, no skin breakdown, no abscesses (ALISON LUGO) Physical Exam - Vital signs Interpretation: Normal - General General appearance: Appears well, Alert - HEENT Head: Normocephalic, Atraumatic Eyes: Normal Pupils: PERRL - Respiratory Respiratory status: No respiratory distress Chest status: Nontender Breath sounds: Normal Chest palpation: Normal - Cardiovascular Rhythm: Regular Heart sounds: Normal auscultation Murmur: No - Abdominal Inspection: Normal Distension: No distension Bowel sounds: Normal Tenderness: Nontender Organomegaly: No organomegaly - Back Back: Normal, Nontender - Extremities General upper extremity: Normal inspection, Nontender, Normal color, Normal ROM, Normal temperature General lower extremity: Normal inspection, Nontender, Normal color, Normal ROM, Normal temperature, Normal weight bearing. No: Tessy's sign - Neurological Neuro grossly intact: Yes Cognition: Normal Orientation: AAOx4 [place] Coma Scale Eye Opening: Spontaneous [place] Coma Scale Verbal: Oriented [place] Coma Scale Motor: Obeys Commands [place] Coma Scale Total: 15 Speech: Normal Motor strength normal: LUE, RUE, LLE, RLE Sensory: Normal - Psychological Associated symptoms: Normal affect, Normal mood - Skin Skin Temperature: Warm Skin Moisture: Dry Skin Color: Normal <ALISON LUGO - Last Filed: 10/14/18 10:40> - Vital signs Vitals: Temp Pulse Resp BP Pulse Ox 97.3 F 100 26 H 108/68 99 10/14/18 07:19 10/14/18 07:19 10/14/18 07:19 10/14/18 07:19 10/14/18 07:19 Course - Laboratory Result Diagrams: 10/14/18 08:40 10/14/18 08:40 <SHANAE MALHOTRA - Last Filed: 10/14/18 10:27> - Laboratory Result Diagrams: 10/14/18 08:40 10/14/18 08:40 <ALISON LUGO - Last Filed: 10/14/18 10:40> - Re-evaluation Re-evalutation: 10/14/18 10:36 Mental health has seen and evaluated and do not feel that patient is requiring admission for psychiatric evaluation. Law enforcement officials are here and are arresting the patient for violation of his parole. Patient refusing to give urine sample but did admit to me that he was doing drugs last night. At this time I have given him Zyprexa and BuSpar as well as Norvasc and amlodipine. Patient has a history of hypertension. At this time following the recommendations of mental health and will be discharged at this time. [place] comfortable with this plan as patient is going to be and custody of [facility]. Will DC in stable condition. 10/14/18 10:37 Laboratory 10/14/18 10/14/18 08:40 08:40 WBC 14.3 H RBC 5.05 Hgb 15.5 Hct 44.8 MCV 89 MCH 30.8 MCHC 34.7 RDW 13.6 Plt Count 337 Seg Neutrophils % 55.6 Lymphocytes % 33.8 Monocytes % 7.1 Eosinophils % 2.7 Basophils % 0.8 Absolute Neutrophils 7.9 Absolute Lymphocytes 4.8 H Absolute Monocytes 1.0 Absolute Eosinophils 0.4 Absolute Basophils 0.1 Sodium 143.3 Potassium 3.8 Chloride 106 Carbon Dioxide 23 Anion Gap 14 BUN 17 Creatinine 0.98 Est GFR ( Amer) > 60 Est GFR (Non-Af Amer) > 60 Glucose 104 Calcium 10.1 Total Bilirubin 0.7 Direct Bilirubin 0.2 Neonat Total Bilirubin Not Reportable Neonat Direct Bilirubin Not Reportable Neonat Indirect Bili Not Reportable AST 30 ALT 24 Alkaline Phosphatase 70 Total Protein 8.4 H Albumin 5.0 Salicylates < 1.0 L Acetaminophen < 10 L Serum Alcohol < 10 (ALISON LUGO) - Vital Signs Vital signs: Temp Pulse Resp BP Pulse Ox 97.3 F 79 18 182/99 H 100 10/14/18 07:19 10/14/18 10:34 10/14/18 10:34 10/14/18 10:34 10/14/18 10:34 - Laboratory Laboratory results interpreted by me: 10/14/18 10/14/18 08:40 08:40 WBC 14.3 H Absolute Lymphocytes 4.8 H Total Protein 8.4 H Salicylates < 1.0 L Acetaminophen < 10 L Discharge <SHANAE MALHOTRA - Last Filed: 10/14/18 10:27> <ALISON LUGO - Last Filed: 10/14/18 10:40> - Discharge Clinical Impression: Suicidal ideation, Polysubstance abuse, Hx of bipolar disorder Hypertension Qualifiers: Hypertension type: unspecified Qualified Code(s): I10 - Essential (primary) hypertension Condition: Stable Disposition: HOME, SELF-CARE Instructions: High Blood Pressure, Requiring Treatment ([facility]) Additional Instructions: You have been evaluated by both medical and behavioral health providers while in the emergency department. you have been cleared from both acute medical and psychiatric services. It is felt your increased depression and suicidal ideation or related to polysubstance use of reported alcohol and cocaine. You noted a Bipolar diagnosis and not being medicated for several months. You have been provided scripts/recommendations for mood stabilization. You should stop using illegal substances and take medications as prescribed. you should re establish outpatient services for ongoing substance abuse and mental health treatment. DEPRESSION: Your evaluation reveals that you have mental depression. While symptoms may be vague, they often include disturbance of sleep, fatigue, loss of appetite, and general loss of interest in life. While depression may be a side effect of drugs, or a reaction to a major change in your life, many cases have no known cause. If depression is acute, and related to a major loss in your life, you can expect it to clear completely with time. If you have been depressed a long time, are prone to repeated bouts of depression or low mood, or have been thinking of suicide, get help. Depression can be treated with anti-depressant medication and counselling. Long-term depression will often take a few weeks to clear, even with appropriate medication. Follow-up care is important. SUICIDAL IDEATION: Suicidal ideation is a common medical term for thoughts about suicide, which may be as detailed as a formulated plan, without the suicidal act itself. Although most people who undergo suicidal ideation do not commit suicide, some go on to make suicide attempts. The range of suicidal ideation varies greatly from fleeting to detailed planning, role playing, and unsuccessful attempts. While thoughts about suicide are common, most people do not carry out serious actions to commit suicide. Based upon your evaluation and discussion with you, we do not believe you are currently at risk to act upon your thoughts of suicide. You have agreed to return to the Emergency Department, at any time, if you feel inclined to act upon your suicidal thoughts. ACUTE ALCOHOL INTOXICATION and ALCOHOL ABUSE: (per report used yesterday) Your evaluation revealed very high levels of alcohol. You can from drinking a large amount of alcohol rapidly! Further, there's the risk of falls, traffic accidents, and fights. A high portion (about 50 percent) of the serious injuries seen in hospital emergency rooms are caused by alcohol. Alcohol overdosage is usually due to an underlying emotional or psychiatric problem. You may benefit from counselling. If "binge" drinking is an ongoing problem for you, or if you drink ANY AMOUNT of alcohol EVERY day, you most likely have a tendency to alcoholism. You should avoid alcohol totally. We can refer you for treatment. Persons with alcohol problems are often also prone to other addictions -- you should discuss any use of medications or drugs with the doctor. You should be watched at home for the next several hours by someone who has not been drinking. Get extra fluids for the next 24 hours. Call the doctor if there is repeated vomiting, increasing headache, decreasing level of alertness, or any other worsening. COCAINE ABUSE: (per report used yesterday) Cocaine causes many dangerous medical problems. Problems can occur even with "usual" amounts. Cocaine affects judgement, creating a sense of invulnerability. Cocaine users often make bad decisions that seem "great" at the time. Most cocaine users eventually will be hurt by bad job performance, damaged personal relations, crime, and unsafe sexual practices. Toxic effects of cocaine can include seizures, hallucinations, delusions, high blood pressure, heart damage, or sudden . There's always the risk of a "bad batch." But heart attacks, brain hemorrhages, or cardiac arrest can occur unpredictably even with "normal" use. Injection of cocaine is risky for abscesses, endocarditis (heart infection), pneumonia, and AIDS. Withdrawal from cocaine often causes anxiety and drug cravings. Some users become paranoid and psychotic. Many treatment programs are available, but you must make the decision to quit. Medication can be prescribed to control the symptoms of cocaine toxicity (beta blockers or benzodiazepines). Withdrawal symptoms may require tranquilizers. FOLLOW-UP CARE: You were provided scripts/recommendations for Zyprexa 2.5MG twice a day and Buspar 5MG twice a day. You should go to [facility] as a walk in to re establish services. If you experience worsening or a significant change in your symptoms, notify the physician immediately, utilize mobile crisis or return to the Emergency Department at any time for re-evaluation. Prescriptions: Amlodipine Besylate [Norvasc 10 mg Tablet] 10 mg PO DAILY #30 tablet Buspirone HCl [Buspar 5 mg Tablet] 2.5 tab PO BID 15 Days #15 tab Metoprolol Tartrate [Lopressor 50 mg Tablet] 50 mg PO Q12H 30 Days #60 tablet Olanzapine [Zyprexa 2.5 Mg Tablet] 2.5 mg PO BID 10 Days #20 tablet Referrals: [facility] [Outside] - Follow up as needed [facility] [Outside] - Follow up as needed
[2018-10-14 08:51] LABS: ABSOLUTE BASOPHILS # (AUTO) 0.1 10^3/uL (0.0-0.2); ABSOLUTE EOSINOPHILS # (AUTO) 0.4 10^3/uL (0.0-0.6); ABSOLUTE LYMPHOCYTES (AUTO) 4.8 10^3/uL (0.5-4.7); ABSOLUTE NEUT (AUTO) 7.9 10^3/uL (1.7-8.2); BASOPHILS % (AUTO) 0.8 % (0-2); EOSINOPHILS % (AUTO) 2.7 % (0-6); HEMATOCRIT 44.8 % (37.9-51.0); HEMOGLOBIN 15.5 g/dL (13.5-17.0); LYMPHOCYTES % (AUTO) 33.8 % (13-45); MEAN CORPUSCULAR HEMOGLOBIN 30.8 pg (27.0-33.4); MEAN CORPUSCULAR HGB CONC 34.7 g/dL (32.0-36.0); MEAN CORPUSCULAR VOLUME 89 fl (80-97); MONOCYTES % (AUTO) 7.1 % (3-13); PLATELET COUNT 337 10^3/uL (150-450); RED BLOOD COUNT 5.05 10^6/uL (4.35-5.55); RED CELL DISTRIBUTION WIDTH 13.6 % (11.5-14.0); SEGMENTED NEUTROPHILS % (AUTO) 55.6 % (42-78); TOTAL CELLS COUNTED % (AUTO) 100 %; WHITE BLOOD COUNT 14.3 10^3/uL (4.0-10.5)
[2018-10-14 09:16] LABS: ALANINE AMINOTRANSFERASE 24 U/L (21-72); ALKALINE PHOSPHATASE 70 U/L (38-126); ANION GAP 14 (5-19); ASPARTATE AMINO TRANSFERASE 30 U/L (17-59); BILIRUBIN,DIRECT 0.2 mg/dL (0.0-0.4); BILIRUBIN,TOTAL 0.7 mg/dL (0.2-1.3); BLOOD UREA NITROGEN 17 mg/dL (7-20); CALCIUM 10.1 mg/dL (8.4-10.2); CARBON DIOXIDE 23 mmol/L (22-30); CHLORIDE 106 mmol/L (98-107); GLUCOSE 104 mg/dL (75-110); POTASSIUM 3.8 mmol/L (3.6-5.0); SODIUM 143.3 mmol/L (137-145); TOTAL PROTEIN 8.4 g/dL (6.3-8.2)
[2018-10-14 09:19] LABS: ACETAMINOPHEN < 10 ug/mL (10-30); ALCOHOL < 10 mg/dL (NONE DETECTED); SALICYLATE < 1.0 mg/dL (2.0-20.0)
[2018-10-14] MEDS ORDERED: METOPROLOL TARTRATE 50 MG TABLET PO ONE (10:30)
[2018-10-14] MEDS ORDERED: BUSPIRONE HCL 10 MG TABLET PO ONE (10:30)
[2018-10-14] MEDS ORDERED: OLANZAPINE 2.5 MG TABLET PO ONE (10:30)
[2018-10-14] MEDS ORDERED: AMLODIPINE BESYLATE 10 MG TABLET PO ONE (10:31)
[2018-10-14 11:05] VITALS: BP 156/90
--- NOTE | 2018-10-14 12:49 | EKG REPORT ---
SEVERITY:- ABNORMAL ECG - SINUS RHYTHM LEFT ANTERIOR FASCICULAR BLOCK BORDERLINE T WAVE ABNORMALITIES : Confirmed by: Brijesh Blanco MD 14-Oct-2018 12:48:18
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
== END 2018-10-14 11:13 | disposition home or self-care (01) ==
LOC: ER 07:10
DX: R45.851 Suicidal ideations (principal); F31.9 Bipolar disorder, unspecified; F19.10 Other psychoactive substance abuse, uncomplicated; F17.200 Nicotine dependence, unspecified, uncomplicated; I25.10 Atherosclerotic heart disease of native coronary artery without angina pectoris; E78.00 Pure hypercholesterolemia, unspecified; I10 Essential (primary) hypertension; E11.9 Type 2 diabetes mellitus without complications; Z88.0 Allergy status to penicillin; Z91.013 Allergy to seafood; Z95.1 Presence of aortocoronary bypass graft
CPT/HCPCS: 93005; 99285; 36415; 80307 ×3; 85025; 80053; 93010; J3490

== ENCOUNTER 2019-03-26 05:46 | Emergency (ER) | payer SELFPAY ==
[2019-03-26 06:52] LABS: APPEARANCE,URINE CLEAR; BILIRUBIN,URINE NEGATIVE (NEGATIVE); COLOR,URINE YELLOW; GLUCOSE, URINE NEGATIVE (NEGATIVE); KETONES,URINE NEGATIVE (NEGATIVE); LEUKOCYTE ESTERASE,URINE NEGATIVE (NEGATIVE); NITRITE,URINE NEGATIVE (NEGATIVE); PROTEIN,URINE 100 mg/dL (NEGATIVE); URINE SPECIFIC GRAVITY 1.013; UROBILINOGEN,URINE NEGATIVE mg/dL (<2.0)
[2019-03-26] MEDS ORDERED: NORMAL SALINE 1000 ML 1,000 ML IV ONE (06:53)
[2019-03-26] MEDS ORDERED: DIPHENHYDRAMINE HCL 50 MG/ML VIAL IV ONE (06:53)
[2019-03-26] MEDS ORDERED: PROCHLORPERAZINE EDISYLATE INJ 10 MG/2 ML VIAL IV ONE (06:53)
[2019-03-26 06:55] LABS: ABSOLUTE BASOPHILS # (AUTO) 0.1 10^3/uL (0.0-0.2); ABSOLUTE EOSINOPHILS # (AUTO) 0.1 10^3/uL (0.0-0.6); ABSOLUTE LYMPHOCYTES (AUTO) 3.1 10^3/uL (0.5-4.7); ABSOLUTE NEUT (AUTO) 7.2 10^3/uL (1.7-8.2); BASOPHILS % (AUTO) 0.6 % (0-2); EOSINOPHILS % (AUTO) 1.2 % (0-6); HEMATOCRIT 44.3 % (37.9-51.0); HEMOGLOBIN 15.2 g/dL (13.5-17.0); LYMPHOCYTES % (AUTO) 27.1 % (13-45); MEAN CORPUSCULAR HEMOGLOBIN 31.3 pg (27.0-33.4); MEAN CORPUSCULAR HGB CONC 34.4 g/dL (32.0-36.0); MEAN CORPUSCULAR VOLUME 91 fl (80-97); MONOCYTES % (AUTO) 8.4 % (3-13); PLATELET COUNT 302 10^3/uL (150-450); RED BLOOD COUNT 4.87 10^6/uL (4.35-5.55); SEGMENTED NEUTROPHILS % (AUTO) 62.7 % (42-78); TOTAL CELLS COUNTED % (AUTO) 100 %; WHITE BLOOD COUNT 11.4 10^3/uL (4.0-10.5)
--- NOTE | 2019-03-26 06:55 | ER Document Report ---
ED Psych Disorder / Suicide <CATHERINE MONTANA - Last Filed: 03/26/19 11:37> - General Mode of Arrival: Ambulatory Information source: Patient, [facility] Records TRAVEL OUTSIDE OF THE [place] IN LAST 30 DAYS: No - Related Data Home Medications: was on meds-no meds for 2 yrs <ALLI LLANES - Last Filed: 03/26/19 12:02> - General Chief Complaint: Psych Problem Stated Complaint: SUICIDAL IDEATIONS Time Seen by Provider: 03/26/19 06:28 Primary Care Provider: [facility] [Outside] - Follow up as needed Notes: 48-year-old male patient comes emergency room complaining of severe depression and suicidal ideation. States she does not want to live anymore. States she has been drinking alcohol and using cocaine to control the voices in his head. States she has been off medication for 2 years, used to go to [facility] for his care. Review of records shows he was actually seen here 5 months ago for similar problems, and one year ago for similar problems. He is also complaining of severe headache, mostly frontal but going all over head. (SHRADDHA,ALLI) - Related Data Allergies/Adverse Reactions: Shellfish * [Shellfish] Allergy (Severe, Verified 02/24/18 13:10) MARIA R Inhibitors Allergy (Verified 12/22/16 08:26) iodine [Iodine] Allergy (Verified 02/24/18 13:10) Penicillins Allergy (Verified 12/22/16 08:26) shellfish derived Allergy (Verified 12/22/16 08:26) Past Medical History - General Information source: Patient, [facility] Records - Social History Smoking Status: Current Every Day Smoker Cigarette use (# per day): Yes - 3/4 PPD Chew tobacco use (# tins/day): No Smoking Education Provided: No Frequency of alcohol use: Heavy Drug Abuse: Cocaine, Marijuana Family History: CAD, Hypertension, Reviewed & Not Pertinent Patient has suicidal ideation: Yes Patient has homicidal ideation: No - Past Medical History Cardiac Medical History: Reports: Hx Coronary Artery Disease, Hx Hypercholesterolemia, Hx Hypertension Pulmonary Medical History: Reports: Hx Asthma, Hx Pneumonia - 2008 after CABG Neurological Medical History: Reports: None Endocrine Medical History: Reports: Hx Diabetes Mellitus Type 2 GI Medical History: Reports: None Musculoskeletal Medical History: Reports None Psychiatric Medical History: Reports: Hx Bipolar Disorder, Hx Depression, Other - Patient reports he has been diagnosed with schizophrenia in the past. Traumatic Medical History: Reports: Hx Fractures - fingers and ankles from football injuries Past Surgical History: Reports: Hx Cardiac Catheterization - 1X stent, Hx Coron patricia Artery Bypass Graft - LAD was bypassed on 03/08/2008 following occlusion of an LAD stent, Hx Coronary Stent - Immunizations Hx Diphtheria, Pertussis, Tetanus Vaccination: Yes <ALLI LLANES - Last Filed: 03/26/19 12:02> Review of Systems - Review of Systems Constitutional: No symptoms reported EENT: No symptoms reported Cardiovascular: No symptoms reported Respiratory: No symptoms reported Gastrointestinal: No symptoms reported Genitourinary: No symptoms reported Musculoskeletal: No symptoms reported Skin: No symptoms reported Neurological/Psychological: Depression, Hallucinations, Suicidal ideation <ALLI LLANES - Last Filed: 03/26/19 12:02> Physical Exam - General General appearance: Alert, Other - Depressed, tearful In distress: None - HEENT Head: Normocephalic, Atraumatic Eyes: Normal Pupils: PERRL Neck: Normal - Respiratory Respiratory status: No respiratory distress Breath sounds: Normal - Cardiovascular Rhythm: Regular Heart sounds: Normal auscultation Murmur: No - Abdominal Inspection: Normal - Back Back: Normal - Extremities General upper extremity: Normal inspection General lower extremity: Normal inspection - Neurological Neuro grossly intact: Yes - Psychological Associated symptoms: Depressed, Tearful - Skin Skin Temperature: Warm Skin Moisture: Dry Skin Color: Normal <ALLI LLANES - Last Filed: 03/26/19 12:02> - Vital signs Vitals: Temp Pulse Resp BP Pulse Ox 97.7 F 85 20 190/100 H 99 03/26/19 05:53 03/26/19 05:53 03/26/19 05:53 03/26/19 05:53 03/26/19 05:53 Course - Laboratory Result Diagrams: 03/26/19 06:30 03/26/19 06:30 <CATHERINE MONTANA - Last Filed: 03/26/19 11:37> - Laboratory Result Diagrams: 03/26/19 06:30 03/26/19 06:30 - EKG Interpretation by Ca EKG shows normal: Sinus rhythm, Baldwin, Intervals, QRS Complexes, ST-T Waves Rate: Normal - 73 Rhythm: NSR Baldwin/QRS: Left axis deviation, LAHB/LAFB P Waves: LAE <ALLI LLANES - Last Filed: 03/26/19 12:02> - Re-evaluation Re-evalutation: 03/26/19 08:59 Clinically, the patient seemed to have a muscle contraction type headache. I initially told him how we would treat that to give him some relief. He seemed agreeable to all suggestions. At some point he decided he wanted to go home to check on his mother, IVC paperwork was done due to his complaints of having suicidal ideations. After that he refused the medication for his headaches. His blood pressure is elevated, he has not taken any medications other than illicit drugs for quite some time. He is previously been prescribed metoprolol, however due to his cocaine abuse we will give him a dose of labetalol and see if that helps with his blood pressure. (ALLI LLANES) - Vital Signs Vital signs: Temp Pulse Resp BP Pulse Ox 97.7 F 73 20 167/95 H 99 03/26/19 05:53 03/26/19 09:17 03/26/19 05:53 03/26/19 09:17 03/26/19 05:53 - Laboratory Laboratory results interpreted by me: 03/26/19 03/26/19 03/26/19 06:00 06:30 06:30 WBC 11.4 H Glucose 115 H Creatine Kinase 551 H Total Protein 8.6 H Urine Protein 100 H Salicylates < 1.0 L Acetaminophen < 10 L Discharge <CATHERINE MONTANA - Last Filed: 03/26/19 11:37> <ALLI LLANES - Last Filed: 03/26/19 12:02> - Discharge Clinical Impression: Cocaine abuse High blood pressure Qualifiers: Hypertension type: essential hypertension Qualified Code(s): I10 - Essential (primary) hypertension Condition: Stable Disposition: HOME, SELF-CARE Additional Instructions: You have been evaluated by both medical and behavioral health teams and have been deemed appropriate for discharge. Medication recommendations have been provided and are as follows: Zyprexa 2.5MG, twice per day Buspar 5MG, twice per day Please follow up with your identified provider, [facility], for medication recommendations and mental health services, to include substance abuse treatment. You have been provided with a list of community mental health and substance abuse treatment resources. You are highly encouraged to follow up with mental health, medication management, and substance abuse treatment to maintain a stable routine. Per conversation with clinician, please utilize the web resource of "[employer]" for online support and NA meetings. The contact information for mobile crisis, as needed. ACUTE ALCOHOL INTOXICATION and ALCOHOL ABUSE: Your evaluation revealed very high levels of alcohol. You can from drinking a large amount of alcohol rapidly! Further, there's the risk of falls, traffic accidents, and fights. A high portion (about 50 percent) of the serious injuries seen in hospital emergency rooms are caused by alcohol. Alcohol overdosage is usually due to an underlying emotional or psychiatric problem. You may benefit from counselling. If "binge" drinking is an ongoing problem for you, or if you drink ANY AMOUNT of alcohol EVERY day, you most likely have a tendency to alcoholism. You should avoid alcohol totally. We can refer you for treatment. Persons with alcohol problems are often also prone to other addictions -- you should discuss any use of medications or drugs with the doctor. You should be watched at home for the next several hours by someone who has not been drinking. Get extra fluids for the next 24 hours. Call the doctor if there is repeated vomiting, increasing headache, decreasing level of alertness, or any other worsening. CHRONIC ALCOHOLISM and ALCOHOL ABUSE: Your evaluation reveals evidence of chronic alcoholism, an addiction to alcohol. The tendency to alcoholism may be inherited. Chronic use of alcohol weakens muscles, causes fatty deposits in the liver, damages the stomach, makes you more prone to infections, and can cause defects in unborn children. In the long run, brain atrophy and cirrhosis of the liver result. You are also at greater risk for certain types of cancer, such as cancer of the mouth, throat, stomach, and liver. Counselling services are available to help you. In-hospital treatment programs often help. Support groups such as Alcoholics Anonymous can be very u seful in beating this addiction. Your physician can make a referral for you. As alcoholics often are prone to other addictions, you should discuss your use of any other medications with the doctor. ALCOHOL WITHDRAWAL: Your symptoms are caused by alcohol withdrawal. After a period of frequent drinking, the brain and body are changed by the alcohol. When you quit or reduce your drinking, the nervous system becomes unstable. Withdrawal symptoms can start a few hours after your last drink, but sometimes don't begin until a couple of days later. Symptoms can include shakiness, sweating, insomnia, nausea, vomiting, fearfulness, hallucinations, and seizures. In addition to the acute effects of alcohol withdrawal, we often have to deal with the medical effects of alcoholism. These problems often include dehydration, stomach irritation, intestinal bleeding, low blood sugar, liver disease, and pancreas inflammation. Treatment for alcohol withdrawal includes mild sedatives, vitamins, and fluids. You need to be with someone who can help if symptoms become severe. Many patients can withdraw at home. Admission to the hospital or a detox facility may be necessary if withdrawal symptoms are severe and uncontrollable. Abstaining from alcohol is the only effective long-term treatment. If you start drinking again, you will not be able to control yourself after the first drink. Treatment programs are available. In addition, many alcoholics benefit from Alcoholics Anonymous or other support groups available through your counselor or amish black off worker. AL-ANON and ALA-TEEN are support groups for friends and family members of an alcoholic. Go to the emergency room if you develop persistent vomiting, severe abdominal pain, fever, shortness of breath, hallucinations, uncontrollable tremors, or seizures. COCAINE ABUSE: Cocaine causes many dangerous medical problems. Problems can occur even with "usual" amounts. Cocaine affects judgement, creating a sense of invulnerability. Cocaine users often make bad decisions that seem "great" at the time. Most cocaine users eventually will be hurt by bad job performance, damaged personal relations, crime, and unsafe sexual practices. Toxic effects of cocaine can include seizures, hallucinations, delusions, high blood pressure, heart damage, or sudden . There's always the risk of a "bad batch." But heart attacks, brain hemorrhages, or cardiac arrest can occur unpredictably even with "normal" use. Injection of cocaine is risky for abscesses, endocarditis (heart infection), pneumonia, and AIDS. Withdrawal from cocaine often causes anxiety and drug cravings. Some users become paranoid and psychotic. Many treatment programs are available, but you must make the decision to quit. Medication can be prescribed to control the symptoms of cocaine toxicity (beta blockers or benzodiazepines). Withdrawal symptoms may require tranquiliz ers. AMPHETAMINE / METHAMPHETAMINE ABUSE: Amphetamines are addicting stimulants. Amphetamines overstimulate the nervous system and give a false feeling of power and mastery. These drugs may be obtained as prescription pills for weight loss, narcolepsy, or attention-deficit disorder. More often they're bought as an illegal street drug, methamphetamine (crank, crystal, speed). Using amphetamines repeatedly can lead to serious medical problems including malnutrition, severe depression, and paranoia. It can take increasing amounts to feel good. Eventually, there will be a "burn out." When you go off amphetamines there is a period of depression that may last for weeks or even months. High doses of amphetamines can cause seizures, confusion, hallucinations, delusions, high blood pressure, muscle damage, heart damage, or sudden . Many times these deadly complications occur even with "normal" doses. Injection of amphetamines is risky for developing abscesses, endocarditis (heart infection), pneumonia, and AIDS. Withdrawal from amphetamines often causes anxiety, depression, and drug cravings. Some users become paranoid and psychotic. There may be cramps, nausea, and vomiting. Many treatment programs are available, but you must make the decision to quit. Medication can be prescribed to control the symptoms of amphetamine toxicity (beta blockers or benzodiazepines). Withdrawal symptoms may require tranquilizers. DEPRESSION: Your evaluation reveals that you have mental depression. While symptoms may be vague, they often include disturbance of sleep, fatigue, loss of appetite, and general loss of interest in life. While depression may be a side effect of drugs, or a reaction to a major change in your life, many cases have no known cause. If depression is acute, and related to a major loss in your life, you can expect it to clear completely with time. If you have been depressed a long time, are prone to repeated bouts of depression or low mood, or have been thinking of suicide, get help. Depression can be treated with anti-depressant medication and counselling. Long-term depression will often take a few weeks to clear, even with appropriate medication. Follow-up care is important. SUICIDAL IDEATION: Suicidal ideation is a common medical term for thoughts about suicide, which may be as detailed as a formulated plan, without the suicidal act itself. Although most people who undergo suicidal ideation do not commit suicide, some go on to make suicide attempts. The range of suicidal ideation varies greatly from fleeting to detailed planning, role playing, and unsuccessful attempts. While thoughts about suicide are common, most people do not carry out serious actions to commit suicide. Based upon your evaluation and discussion with you, we do not believe you are currently at risk to act upon your thoughts of suicide. You have agreed to return to the Emergency Department, at any time, if you feel inclined to act upon your suicidal thoughts. AT ANY TIME, IF YOUR SYMPTOMS CHANGE SIGNIFICANTLY OR WORSEN OR YOU DEVELOP NEW SYMPTOMS, RETURN TO THE EMERGENCY DEPARTMENT IMMEDIATELY FOR RE-EVALUATION. High Blood Pressure When your blood pressure was taken today it was elevated. The patient has been informed that he has Hypertension based on a blood pressure reading in the emergency department. I recommend that the patient call a primary care physician of their choice this week to arrange follow up for further evaluation of possible pre-hypertension or Hypertension. Some simple things you can do to help are: If you have blood pressure medicine but aren't using it regularly, start taking it again. Get some aerobic exercise for at least 20 minutes on a daily basis. (See your doctor before beginning a new exercise program.) Eat a low-fat diet. Lose excess weight. Avoid salty foods and avoid adding salt to any of the foods you eat. Avoid diet pills, decongestants, "energizing" herbs, and other medicines that elevate blood pressure. If left untreated, hypertension greatly enhances your risk for developing heart disease and strokes. Please don't ignore this problem. Take the medications as prescribed for your elevated blood pressure, and your psychiatric problems. Follow-up with a local primary care provider to manage your high blood pressure. Follow-up at [facility] to manage her psychological problems. RETURN TO THE EMERGENCY ROOM IF ANY NEW OR WORSENING SYMPTOMS. Prescriptions: Buspirone HCl [Buspar 5 mg Tablet] 1 tab PO BID #60 tab Metoprolol Tartrate [Lopressor 50 mg Tablet] 50 mg PO Q12H #60 tablet Amlodipine Besylate [Norvasc 10 mg Tablet] 10 mg PO DAILY #30 tablet Olanzapine [Zyprexa 2.5 Mg Tablet] 2.5 mg PO BID #60 tablet Referrals: [facility] [Outside] - Follow up as needed
[2019-03-26 07:06] LABS: URINE AMPHETAMINES SCREEN NEGATIVE; URINE BARBITURATES SCREEN NEGATIVE; URINE BENZODIAZEPINES SCREEN NEGATIVE; URINE METHADONE SCREEN NEGATIVE; URINE PHENCYCLIDINE SCREEN NEGATIVE
[2019-03-26 07:10] LABS: URINE COCAINE SCREEN UNCONFIRMED POSITIVE; URINE MARIJUANA (THC) SCREEN UNCONFIRMED POSITIVE
[2019-03-26 07:23] LABS: ALKALINE PHOSPHATASE 68 U/L (38-126); ANION GAP 13 (5-19); ASPARTATE AMINO TRANSFERASE 32 U/L (17-59); BILIRUBIN,DIRECT 0.1 mg/dL (0.0-0.4); BILIRUBIN,TOTAL 0.7 mg/dL (0.2-1.3); BLOOD UREA NITROGEN 7 mg/dL (7-20); CALCIUM 10.1 mg/dL (8.4-10.2); CARBON DIOXIDE 25 mmol/L (22-30); CHLORIDE 103 mmol/L (98-107); CREATINE KINASE 551 U/L (55-170); GLUCOSE 115 mg/dL (75-110); POTASSIUM 3.6 mmol/L (3.6-5.0); TOTAL PROTEIN 8.6 g/dL (6.3-8.2)
[2019-03-26 07:25] LABS: ACETAMINOPHEN < 10 ug/mL (10-30); ALCOHOL < 10 mg/dL (NONE DETECTED); SALICYLATE < 1.0 mg/dL (2.0-20.0)
[2019-03-26] MEDS: BUSPIRONE HCL 10 MG TABLET PO SCH ×2 (08:03→09:01)
[2019-03-26] MEDS: OLANZAPINE 2.5 MG TABLET PO SCH ×2 (08:03→09:01)
[2019-03-26] MEDS ORDERED: LABETALOL HCL 200 MG TABLET PO ONE (08:58)
--- NOTE | 2019-03-26 11:00 | PSYCHOLOGICAL NOTE ---
Psych Note - Psych Note Date seen by psych provider: 03/26/19 Time seen by psych provider: 07:45 Psych Note: Reason for consult: SI Patient is a 48 year old male who presents by himself to ED via POV due to severe depression and suicidal ideation. Patient has an extensive history with this ED. Per report, patient has diagnoses of Bipolar Disorder, Depression, and Schizophrenia. Patient reports self-medicating with alcohol and polysubstance use. Patient has presented to the ED for the following concerns most recently on 10/14/18, 03/11/18, 09/09/17, 04/08/17, and 07/05/16. Patient received substance abuse treatment as [facility]. Patient shared several biopsychosocial stressors with clinician. Patient verbalized insight about the harm self medicating is doing to himself and his family. Patient expresses concern for his mother, who is in ill health. Patient describes himself as the protector of his family. Patient verbalized insight in how others perceive his behavior. Patient expresses anxiety surrounding his mother's health. Patent's informed patient that his mother's blood sugar was approximately 560, which increased patient's anxiety. Clinician offered to have law enforcement or community paramedics to perform a well check on patient's mother. Patient denied. Patient reports "all that stuff [suicidal ideation] went out the door." Patient requests discharge to "check on mom." Patient's demeanour has been calm and cooperative with this clinician. Obtained collateral information from spouse. Spouse confirmed patient's recent attempts to obtain gainful employment and "get right." Due to criminal record, patient is experiencing employment challenges. Patient and spouse elaborated more on psychosocial stressors affecting patient, specifically "as a man I should be supporting my family"; and the guilt patient experiences with relapses. Spouse stated patient is not "allowed to come home when he is high." Patient emotionally/tearfully expressed a desire to "the the man my family needs me to be." Clinician spent time providing psychoeducation regarding the cycle of substance abuse and triggers. Patient is alert and oriented to person, place, time and circumstance. Mood is normal with congruent affect as evidenced by smiling, laughing, and engaging with clinician. Patient denies current suicidal and homicidal ideation. Patient reports auditory and visual hallucinations. Delusions are absent and behavior is congruent with an intact reality based presentation (i.e. organized and linear thought processes). There is no observed behavior that suggests patient is responding to internal stimuli. Eye contact is good. Conversational speech is within normal rate, tone, and prosody. Intellectual ability appears to be within average range. Attention and concentration are good. Insight, judgment, and impulse control are poor. DSM Diagnosis: Medication recommendations per [facility] contracted psychiatrist Dr. Cayetano MERCADO is as follows: Add Zyprexa 2.5MG, twice a day Add Buspar 5MG, twice a day Impression/Plan: Patient is cleared from acute psychiatric services. Patient no longer meets IVC criteria per [place] GS 122C. It is recommended that IVC be rescinded. Medication recommendations have been provided. Patient denies current suicidal and homicidal ideations. Patient discloses auditory and visual hallucinations, however there is no observed behavior that suggests patient is responding to internal stimuli. Patient has an extensive history of substance abuse that coincides with suicidal ideation. It is recommended that patient follow up with mental health services for medication management and outpatient therapy to address substance abuse and mental health concerns. Patient will be provided with substance abuse treatment resource list and a community resource mental keyur list. Patient's agrees to be responsible for medication management and administration. Patient will follow up with [facility]. Dr. Mcdonough was consulted on the care and management of this patient; attending physician is in agreement with recommendations and disposition.
--- NOTE | 2019-03-26 11:12 | EKG REPORT ---
SEVERITY:- ABNORMAL ECG - SINUS RHYTHM PROBABLE LEFT ATRIAL ABNORMALITY LAD, CONSIDER LEFT ANTERIOR FASCICULAR BLOCK NONSPECIFIC ST-T CHANGES- INFERIOR LEADS : Confirmed by: Brijesh Blanco MD 26-Mar-2019 11:11:23
[2019-03-26 12:03] VITALS: BP 163/89
== END 2019-03-26 12:17 | disposition home or self-care (01) ==
LOC: ER 05:46
DX: F14.10 Cocaine abuse, uncomplicated (principal); I10 Essential (primary) hypertension; R45.851 Suicidal ideations; F32.9 Major depressive disorder, single episode, unspecified; R51 Headache; R44.0 Auditory hallucinations; F12.10 Cannabis abuse, uncomplicated; F17.210 Nicotine dependence, cigarettes, uncomplicated; I25.10 Atherosclerotic heart disease of native coronary artery without angina pectoris; E11.9 Type 2 diabetes mellitus without complications; Z91.013 Allergy to seafood; Z88.8 Allergy status to other drugs, medicaments and biological substances; Z95.1 Presence of aortocoronary bypass graft
CPT/HCPCS: 93005; 36415; 80307 ×4; 82550; 85025; 80053; 81001; 84484; 93010; J3490; 99285

== ENCOUNTER 2019-04-04 17:24 | Emergency (ER) | payer OTHER ==
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
[2019-04-04 20:40] VITALS: BP 149/89
== END 2019-04-04 20:45 | disposition left against medical advice (07) ==
LOC: ER 17:24
DX: M54.9 Dorsalgia, unspecified (principal); R51 Headache; M54.2 Cervicalgia; R11.10 Vomiting, unspecified; H57.13 Ocular pain, bilateral; V89.2XXA Person injured in unspecified motor-vehicle accident, traffic, initial encounter; I25.10 Atherosclerotic heart disease of native coronary artery without angina pectoris; E78.00 Pure hypercholesterolemia, unspecified; I10 Essential (primary) hypertension; E11.9 Type 2 diabetes mellitus without complications; Z95.1 Presence of aortocoronary bypass graft; Z88.0 Allergy status to penicillin; Z91.013 Allergy to seafood
CPT/HCPCS: 70450; 72125; 99281

== ENCOUNTER 2019-04-07 06:37 | Emergency (ER) | payer OTHER ==
[2019-04-07 08:34] LABS: ABSOLUTE BASOPHILS # (AUTO) 0.1 10^3/uL (0.0-0.2); ABSOLUTE EOSINOPHILS # (AUTO) 0.4 10^3/uL (0.0-0.6); ABSOLUTE LYMPHOCYTES (AUTO) 4.4 10^3/uL (0.5-4.7); ABSOLUTE MONOCYTES (AUTO) 0.8 10^3/uL (0.1-1.4); ABSOLUTE NEUT (AUTO) 3.3 10^3/uL (1.7-8.2); BASOPHILS % (AUTO) 1.2 % (0-2); EOSINOPHILS % (AUTO) 4.2 % (0-6); HEMATOCRIT 48.5 % (37.9-51.0); HEMOGLOBIN 16.7 g/dL (13.5-17.0); LYMPHOCYTES % (AUTO) 49.1 % (13-45); MEAN CORPUSCULAR HEMOGLOBIN 31.2 pg (27.0-33.4); MEAN CORPUSCULAR HGB CONC 34.4 g/dL (32.0-36.0); MEAN CORPUSCULAR VOLUME 91 fl (80-97); MONOCYTES % (AUTO) 8.7 % (3-13); PLATELET COUNT 300 10^3/uL (150-450); RED BLOOD COUNT 5.36 10^6/uL (4.35-5.55); RED CELL DISTRIBUTION WIDTH 14.1 % (11.5-14.0); SEGMENTED NEUTROPHILS % (AUTO) 36.8 % (42-78); TOTAL CELLS COUNTED % (AUTO) 100 %; WHITE BLOOD COUNT 8.9 10^3/uL (4.0-10.5)
[2019-04-07 08:38] LABS: INTERNATIONAL RATION (INR) 0.95; PROTHROMBIN TIME 12.7 SEC (11.4-15.4)
[2019-04-07] MEDS ORDERED: HYDROCODONE/ACETAMINOPHEN 5-325 MG TABLET PO ONE (08:50)
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
[2019-04-07 08:58] LABS: A TYPE INFLUENZA AG NEGATIVE (NEGATIVE); B INFLUENZA AG NEGATIVE (NEGATIVE)
[2019-04-07 09:11] LABS: ALBUMIN 4.9 g/dL (3.5-5.0); ALKALINE PHOSPHATASE 70 U/L (38-126); ANION GAP 11 (5-19); ASPARTATE AMINO TRANSFERASE 36 U/L (17-59); BILIRUBIN,DIRECT 0.2 mg/dL (0.0-0.4); BILIRUBIN,TOTAL 0.7 mg/dL (0.2-1.3); BLOOD UREA NITROGEN 9 mg/dL (7-20); CALCIUM 10.1 mg/dL (8.4-10.2); CARBON DIOXIDE 24 mmol/L (22-30); CHLORIDE 108 mmol/L (98-107); GLUCOSE 116 mg/dL (75-110); POTASSIUM 4.1 mmol/L (3.6-5.0); TOTAL PROTEIN 8.5 g/dL (6.3-8.2)
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
[2019-04-07 10:29] VITALS: BP 153/100
--- NOTE | 2019-04-07 14:31 | EKG REPORT ---
SEVERITY:- ABNORMAL ECG - SINUS RHYTHM LEFT ANTERIOR FASCICULAR BLOCK : Confirmed by: Ruth Funk MD 07-Apr-2019 14:29:47
== END 2019-04-07 10:42 | disposition home or self-care (01) ==
LOC: ER 06:37
DX: S06.0X1A Concussion with loss of consciousness of 30 minutes or less, initial encounter (principal); S16.1XXA Strain of muscle, fascia and tendon at neck level, initial encounter; S80.02XA Contusion of left knee, initial encounter; M79.10 Myalgia, unspecified site; V89.2XXA Person injured in unspecified motor-vehicle accident, traffic, initial encounter; I10 Essential (primary) hypertension; Z88.0 Allergy status to penicillin; Z91.013 Allergy to seafood; E11.9 Type 2 diabetes mellitus without complications; Z95.1 Presence of aortocoronary bypass graft
CPT/HCPCS: 36415; 70450; 71045; 72125; 80053; 85025; 85610; 87804; 93005; 93010; 99284